=== PATIENT | male | born 1960 | race Caucasian/White ===

== ENCOUNTER 2016-11-26 05:24 | Inpatient (IN) | payer OTHER ==
--- NOTE | 2016-11-20 14:10 | CONS ---
DATE OF ADMISSION: 11/26/2016 DATE OF CONSULTATION: TYPE OF CONSULTATION: Preoperative Internal Medicine REASON FOR CONSULTATION: Consultation requested by Dr. Jon Ornelas for medical evaluation and clearance of a 56-year-old gentleman about to undergo surgery on his back. Thank you, Dr. Ornelas, for allowing us to participate in the care of this patient. HISTORY OF PRESENT ILLNESS: Tucker Vaughn is a 56-year-old gentleman with progressively worsening problems with his back. He is currently being admitted for correction of the above problem. In terms of his prior medical history, he has been generally fairly healthy. He is currently finding it more and more difficult to work because of his back pain and at this point is ready to do something about it. In terms of his prior surgical history, he has had surgery for a deviated septum, no other significant surgeries. He has had no medical hospitalizations, no big broken bones. MEDICATIONS: He is currently takin. Omeprazole 20 mg a day. 2. Sulindac 200 mg b.i.d. 3. Another anti-inflammatory, all of which he is stopping prior to his surgery. ALLERGIES: HE IS NOT ALLERGIC TO ANY MEDICATIONS. SOCIAL HISTORY: The patient is , has 2 children and 2 grandchildren, all in good health. He quit smoking about a year ago, did smoke for many years. Alcohol socially. Does drink coffee. 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 He has sleep apnea for which he uses a CPAP machine. FAMILY HISTORY: Father at age 53, had bladder cancer and heart. Mother is 79 in good health. One sister had cervical cancer, but is doing well. There is a family history of heart, cancer and thyroid issues. He knows of no diabetes, hypertension or stroke. REVIEW OF SYSTEMS: HEENT: Periodic migraine headaches. CARDIORESPIRATORY: Denies any chest pain or shortness of breath. GASTROINTESTINAL: Does have some hyperacidity symptoms, otherwise no melena or hematemesis. GENITOURINARY: No urgency, frequency. MUSCULOSKELETAL: Positive for back problems. NEUROPSYCHIATRIC: Unremarkable. GENERAL HEALTH: As above. PHYSICAL EXAMINATION: VITAL SIGNS: The patient's blood pressure was 124/80, pulse was 60 and regular , respirations were 18, temperature 98.9. Height 5 feet 10 inches, weight 258 pounds. GENERAL: The patient was noted to be a well-developed, well-nourished male, alert and cooperative, in no apparent acute distress. Oriented to time, place, and person. HEENT: Head was atraumatic. Eyes: Pupils were equal, reactive to light and accommodation. Fundi were benign. Tympanic membranes were unremarkable. Nose was negative. Mouth was unremarkable. Fair oral hygiene was present. NECK: Supple without any rigidity. Trachea was midline. Thyroid was unremarkable. Neck veins were flat. Carotid pulses were equal. No bruits were heard. BACK: Unremarkable say for lower back tenderness and difficulty in movement. CHEST: Symmetrical. BREASTS AND AXILLARY: Exam did not reveal any masses. LUNGS: Clear to percussion and auscultation. HEART: PMI was at the fifth intercostal space at the midclavicular line. Regular sinus rhythm was noted. No significant murmurs, rubs, or gallops being elicited. ABDOMEN: Soft, good bowel sounds were noted. No significant organomegaly, masses, or tenderness. GENITALIA: Normal male external genitalia. RECTAL AND PROSTATIC: Exam per PCP. EXTREMITIES: Did not reveal any clubbing, edema or cyanosis. Peripheral pulses were physiologic. SKIN: Moist and warm without any significant eruptions. However, there were multiple moles, and there was a mole right side of his back that appeared to have at least recently bled. No gross lymphadenopathy was noted. NEUROLOGIC: Grossly intact. IMPRESSION: 1. Lumbar disk disease. 2. Gastroesophageal reflux disease. 3. Urinary retention, probably secondary to prostatic enlargement. 4. Stable health. DISCUSSION: Review of laboratory and other data revealed the following: The patient's chemistry panel including electrolytes, glucose, BUN, creatinine, liver function tests, calcium, phosphorus, magnesium were normal. The patient' s iron was somewhat low at 45. CBC was basically normal. However, his white count was mildly elevated at 11, as was his hemoglobin and hematocrit, possibly compatible with early polycythemia. Sed rate was normal. UA, PT, PTT were normal as well. The patient's EKG was normal and his chest x-ray did not reveal any acute changes or abnormalities. Dr. Ornelas, I see no contraindications in this patient undergoing current proposed surgery under desired form of anesthesia. He is a suitable candidate at this particular point in time. I will be more than happy to follow him with you during his stay at [facility]. Thank you again, Dr. Ornelas, for allowing us to participate in the care of this patient. Dictated By: MAURI WORKMAN/TALAT Conf#: [id number] DID#: [id number] MTDD
[~2016-11-26] VITALS: Ht 177.8 cm; Wt 115.3 kg
[2016-11-26] VITALS (20 sets, daily range): BP systolic 103–140; BP diastolic 55–88; PULSE 67–78; RESP 7–20; Ht 177.8 cm; Wt 115.3 kg
[2016-11-26] MEDS ORDERED: CEFAZOLIN 2 GM/50 ML (PMX) 50 ML IVPB SCH (06:00)
[2016-11-26] MEDS ORDERED: LACTATED RINGER'S 1,000 ML IV* SCH (06:00)
[2016-11-26] MEDS ORDERED: GELATIN SIZE 100 SPONGE ONE (06:51)
[2016-11-26] MEDS ORDERED: POLYMYXIN/BACITRACIN 1L IRRIG ONE (06:51)
[2016-11-26] MEDS ORDERED: BUPIVACAINE 0.25% (MPF) 10 ML 10 ML VIAL ONE (06:51)
[2016-11-26] MEDS ORDERED: THROMBIN 5000 UNIT VIAL ONE (06:51)
[2016-11-26] MEDS ORDERED: METOCLOPRAMIDE 10 MG INJ ONE (06:52)
[2016-11-26] MEDS ORDERED: SUCCINYLCHOLINE CHLORIDE 100 MG/5 ML SYG IV ONE (06:52)
[2016-11-26] MEDS ORDERED: ROCURONIUM 50 MG INJ ONE ×2 (06:52→09:18)
[2016-11-26] MEDS ORDERED: PROPOFOL 20 ML ONE ×3 (06:52→09:10)
[2016-11-26] MEDS ORDERED: MIDAZOLAM 1 MG/ML 2 ML INJ ONE (06:52)
--- NOTE | 2016-11-26 06:52 | HPN ---
Date/Time of Note Date/Time of Note DATE: 11/26/16 TIME: 06:52 Interval H&P Admission Note Pt. seen H&P reviewed: No system changes ROMERO MELÉNDEZ MD November 26, 2016 06:52
[2016-11-26] MEDS ORDERED: HYDROmorphONE 2 MG/ML SYG ONE (06:56)
[2016-11-26] MEDS ORDERED: SULF1POW MC (07:22)
[2016-11-26] MEDS ORDERED: SULI150T39 PO (07:22)
[2016-11-26] MEDS ORDERED: PROPOFOL 100 ML ONE (07:24)
[2016-11-26] MEDS ORDERED: OMEP5POW MC (07:26)
[2016-11-26] MEDS ORDERED: ONDANSETRON 4 MG INJ ONE (07:31)
[2016-11-26] MEDS ORDERED: CEFAZOLIN 1 GM INJ ONE (07:50)
[2016-11-26] MEDS ORDERED: ONDANSETRON 4 MG INJ IV PRN ×2 (09:00→10:30)
[2016-11-26] MEDS ORDERED: OXYCODONE/ACETAMINOPHEN (5/325) TAB PO PRN ×2 (09:00)
[2016-11-26] MEDS ORDERED: HYDROmorphONE (0.2 MG/ML) 10ML SYG IV PRN ×3 (09:00)
[2016-11-26] MEDS ORDERED: MEPERIDINE 25 MG INJ IV PRN (09:00)
[2016-11-26] MEDS ORDERED: METOCLOPRAMIDE 10 MG INJ IV PRN (09:00)
[2016-11-26] MEDS ORDERED: DIPHENHYDRAMINE 50 MG INJ IV PRN (09:00)
[2016-11-26] MEDS ORDERED: CEPASTAT LOZENGE MT PRN (10:30)
[2016-11-26] MEDS ORDERED: ZOLPIDEM 5 MG TAB PO PRN (10:30)
[2016-11-26] MEDS ORDERED: HYDROmorphONE 0.2 MG/ML PCA IV SCH (10:30)
[2016-11-26] MEDS ORDERED: DIPHENHYDRAMINE 50 MG CAP PO PRN (10:30)
[2016-11-26] MEDS ORDERED: ACETAMINOPHEN 325 MG TAB PO PRN (10:30)
[2016-11-26] MEDS ORDERED: NACL 0.9% 3 ML SYG IV SCH (10:30)
[2016-11-26] MEDS ORDERED: BETHANECHOL 25 MG TAB PO PRN (10:30)
[2016-11-26] MEDS ORDERED: NALOXONE (0.4 MG/ML) INJ IV PRN (10:30)
[2016-11-26] MEDS ORDERED: DIAZEPAM 5 MG/ML SYG IM PRN (10:30)
[2016-11-26] MEDS ORDERED: PROCHLORPERAZINE 10 MG TAB PO PRN (10:30)
[2016-11-26] MEDS ORDERED: TRIMETHOBENZAMIDE 100 MG/ML VIAL IM PRN (10:30)
--- NOTE | 2016-11-26 10:30 | OPR ---
Date/Time of Note Date/Time of Note DATE: 11/26/16 TIME: 10:27 Operative Report Preoperative Diagnosis Lumbar spinal stenosis at L3,L4, and L5 (lateral recess) Herniated disc L4-5 on the right Herniated disc L5-S1 on the left Postoperative Diagnosis same Operation Performed Central decompressive laminectomy at L3-L4 and L5 Microdiscectomy L4-5 on the right Microdiscectomy L5-S1 on the left Surgeon: ROMERO MELÉNDEZ MD insurance sales assistant: RADHA BROWN Anesthesia: general Anesthesiologist: ALFRED FOSTER MD Estimated Blood Loss: 250 - 300 ml's Specimens Spinous processes of L3-L4 and L5 Herniated disc material L4-5 on the right and L5-S1 on the left Tubes/Drains 2 medium Hemovac drains employed Complications: None Pt Condition Post Procedure: stable Disposition: PACU Operative\Procedure Findings At surgery, lumbar spinal stenosis at L3 and L4 was confirmed there was bilateral foraminal stenosis at L5-S1. There was a small right paracentral herniation at L4-5 There was a small left calcified paracentral herniation at L5-S1 ROMERO MELÉNDEZ MD November 26, 2016 10:30
--- NOTE | 2016-11-26 10:48 | RADRPT ---
PROCEDURE: Intraoperative XR. CLINICAL INDICATION: Intraoperative radiograph during lumbar decompression. TECHNIQUE: Spot intraoperative lateral lumbar x-ray image was provided. The images were reviewed on a high-resolution PACS workstation. COMPARISON: None available FINDINGS: Spot intraoperative lateral lumbar view were provided during there lumbar decompression. The images demonstrate metallic probes at the level of L4 and L5. There is moderate spondylosis at L5-S1. IMPRESSION: 1. Spot intraoperative lateral lumbar view during lumbar decompression were provided. 2. Please see operative report of the same day for further information. RPTAT: DD .Robert Dukes MD, Date Time Electronically viewed and signed by .Robert Dukes MD, on 11/26/2016 10:47 .S/
--- NOTE | 2016-11-26 10:48 | RADRPT ---
PROCEDURE: Intraoperative XR. CLINICAL INDICATION: Intraoperative radiograph during lumbar decompression. TECHNIQUE: Spot intraoperative lateral lumbar x-ray image was provided. The images were reviewed on a high-resolution PACS workstation. COMPARISON: None available FINDINGS: Spot intraoperative lateral lumbar view were provided during lumbar decompression. The images demon strate postoperative changes from laminectomy at L4 and L5 with postoperative changes in the posteri or soft tissues. IMPRESSION: 1. Spot intraoperative lateral lumbar view during lumbar decompression were provided. 2. Please see operative report of the same day for further information. RPTAT: DD .Robert Dukes MD, Date Time Electronically viewed and signed by .Robert Dukes MD, on 11/26/2016 10:48 .S/
--- NOTE | 2016-11-26 10:49 | RADRPT ---
PROCEDURE: Intraoperative XR. CLINICAL INDICATION: Intraoperative radiograph during lumbar decompression. TECHNIQUE: Spot intraoperative lateral lumbar x-ray image was provided. The images were reviewed on a high-resolution PACS workstation. COMPARISON: None available FINDINGS: Spot intraoperative lateral lumbar view were provided during lumbar decompression. The images demon strate postoperative changes from laminectomies at L4 and L5. There is a metallic probe at the leve l of L5-S1. IMPRESSION: 1. Spot intraoperative lateral lumbar view during lumbar decompression were provided. 2. Please see operative report of the same day for further information. RPTAT: DD .Robert Dukes MD, Date Time Electronically viewed and signed by .Robert Dukes MD, on 11/26/2016 10:49 .S/
[2016-11-26] MEDS: CEFAZOLIN 1 GM/50 ML (PMX) 50 ML IVPB SCH ×2 (12:02→17:10)
[2016-11-26] MEDS: DEXTROSE 5%-0.45% NACL 1,000 ML IV SCH ×2 (12:02→22:28)
--- NOTE | 2016-11-26 12:15 | OPR ---
DATE OF OPERATION: 11/26/2016 PREOPERATIVE DIAGNOSES: 1. Lumbar spinal stenosis at L3, L4, and L5 (lateral recess/ foraminal): 2. Herniated disk, L4 to L5 on the right. 3. Herniated disk, L5 to S1 on the left (calcified). POSTOPERATIVE DIAGNOSES: 1. Lumbar spinal stenosis at L3, L4, and L5 (lateral recess/ foraminal): 2. Herniated disk, L4 to L5 on the right. 3. Herniated disk, L5 to S1 on the left (calcified). OPERATIONS PERFORMED: 1. Central decompressive laminectomy at L3. 2. Central decompressive laminectomy at L4. 3. Central decompressive laminectomy at L5. 4. Microdiskectomy, L4 to L5 on the right. 5. Microdiskectomy, L5 to S1 on the left. 6. Medial facetectomy and foraminotomy, L3 to L4, L4 to L5, L5 to S1 bilaterally. 7. Cosmetic wound closure (14 cm). 8. Lateral localized lumbar radiographs (3). 9. Intraoperative nerve monitoring (3 hours). SURGEON: Jon Ornelas MD MATERIAL HANDLING WAREHOUSE SUPERVISOR: SEAN English ANESTHESIA: General endotracheal. ANESTHESIOLOGIST: Dr. Washington ESTIMATED BLOOD LOSS: 350 mL, none replaced. DRAINS: Two medium Hemovac drains employed. COMPLICATIONS: None. PERTINENT HISTORY AND PHYSICAL: This is a 56-year-old male with persistent back and lower extremity complaints, left greater than right, which has been unrelieved by conservative management. He has undergone a number of diagnostic studies including an MRI of the lumbar spine which demonstrated naomie tral stenosis at L3 and L4 and lateral recess/foraminal stenosis at L5 to S1. There were disk herni ations noted at L4 to L5 on the right and L5 to S1 on the left. Treatment options were discussed wi th the patient, who elected to proceed with surgery. OPERATIVE FINDINGS AT SURGERY: The patient had significant central stenosis at L3 and to a lesser d egree at L4. There was some lateral recess and foraminal narrowing at L5 the patient S1 bilaterally . There was a small right paracentral herniation at L4 to L5 and a small calcified left paracentral herniation at L5 to S1. The baseline intraoperative nerve monitoring revealed a decrease in the L4 potential on the left at 40%, the L4 potential on the right at 50%, the L5 potential on the left at 50%, the L5 potential on the right at 60%, the S1 potential on the left at 50%, the S1 potential on the right at 40%. These all returned to normal at the completion of surgery. OPERATIVE PROCEDURE: With the patient in supine position after satisfactory induction of general en dotracheal anesthesia by Dr. Washington, the patient was turned to the prone kneeling position on the Anderson frame. All pressure points were carefully padded. The back was prepped and draped in usu al sterile fashion. Athrombic pumps were applied to the legs below the knees to prevent venous isabel is during and after procedure. An indwelling Cohen catheter was also placed preoperatively to facil itate bladder drainage during the procedure. The patient has a LATEX ALLERGY and all LATEX products were removed from the room. No LATEX containing products were used during the surgery. Two spinal needles were placed next to what was felt to be the L4 and L5 spinous processes, lateral roentgenog carlos was taken which confirmed anatomic localization. A 14 cm incision then carried midline from L3 to the sacrum through skin and subcutaneous tissue to the deep fascia after the skin was infiltrated with 0.25% Marcaine without epinephrine for postoperative analgesia. Superficial retractors were p laced and hemostasis secured with electrocautery. Throughout the procedure, copious amounts of anti bacterial irrigating solution were used to periodically irrigate the wound. The fascia was incised in midline with a hot knife and a bilateral subperiosteal dissection carried out from L3 to the sacr um. Deep retractors were placed and deep hemostasis secured with electrocautery. A second intraope rative radiograph was taken with Sweta clamps placed in what was felt to be the spinous process of L3, L4, and L5 and this was confirmed with second x-ray. A central decompressive laminectomy at L5, L4 and L3 was then carried out using a J Luis right-angle bone rongeur, Leksell rongeur, Kerrison punches and curettes. Ligamentum flavum was incised with sharp dissection. The operating microscop e was then moved into place. A medial facetectomy and foraminotomy was accomplished at L3 to L4, L4 to L5, and L5 to S1 bilaterally using small hand osteotome, mallet, Kerrison punches and curettes. The attention was then turned to the L4 to L5 disk on the right where the L5 root was mobilized medi ally and protected with D'Errico nerve retractors and microdissection technique. This revealed a he rniation of the L4 to L5 disk on the right. A 15 blade knife used to cut a rectangular window in th e annulus and posterior longitudinal ligament and multiple degenerative disk fragments were harveste d with pituitary rongeurs and sent to laboratory for pathologic study. Additional fragments were montero rvested using Stephanie curettes. A thorough search of the floor of the canal was made with an arthro scopic probe. No additional fragments were encountered. The epidural hemostasis was secured with b ipolar electrocautery on low setting. The anesthesiologist was asked to perform a Valsalva maneuver at 40 mmHg, no spinal fluid leakage was noted. Attention then turned to the L5 to S1 level on the left where the S1 root was mobilized medially and protected with D'Errico nerve retractor using microdissection technique. The L5 to S1 disk was not readily identified, as it appeared to have been calcified over, and a 20-gauge spinal needle was pl aced next to what was felt to be the disk space and lateral roentgenogram was taken which confirmed an appropriate localization of the disk. A 15 blade knife was then used to cut a rectangular window in the annulus and posterior longitudinal ligament and multiple calcified disk fragments were remov ed and sent to laboratory for pathologic study. The epidural hemostasis was secured with bipolar el ectrocautery on a low setting. The anesthesiologist was asked to perform a final Valsalva maneuver at 40 mmHg and no spinal fluid leak was noted. The wound was then closed in layers over 2 medium He movac drains, one below the fascia and one above the fascia, using #1 Stratafix sutures in deep par alumbar musculature and deep fascia of the back, 2-0 Stratafix sutures in subcu tissue, and a 4-0 Vi cryl subcuticular cosmetic closing suture on the skin. Dermabond and sterile compressive dressings were applied. Patient having tolerated procedure well, was then turned to supine position onto his bed and extubated by Dr. Washington. He was transported to recovery room in satisfactory condition. At the conclusion of the procedure, sponge, instrument, and needle counts were all correct. NEED FOR FEDERAL MEDIATION COMMISSIONER: During this spinal surgical procedure, my shipping assistant was used to retrac t and protect the spinal nerves and dural sac. My shipping assistant also employed the suction catheters to e vacuate blood from the surgical field to improve visualization of the neural structures. The assista nt was medically necessary to facilitate the completion of the surgery in a safe and expeditious man ner. State of [place] regulations, as well as hospital bylaws, preclude the use of non-licensed [facility] care personnel such as operating room technicians, to perform these functions. Throughout the procedure, neural monitoring was carried out by [employer] including EMG, SSEP and MEP monitoring of the L3, L4, L5 and S1 nerve roots bilaterally along with s alise cord potentials. These were interpreted by neurologists employed by [employer]. Dictated By: JON ORNELAS MD TM/NTS Conf#: [id number] DID#: [id number] CC: MATI EAST MD; JON ORNELAS MD;*[facility]*
[2016-11-26] MEDS ORDERED: METOPROLOL 5 MG INJ ONE (13:55)
[2016-11-26] MEDS: METOCLOPRAMIDE 10 MG INJ IV PRN (18:44)
--- NOTE | 2016-11-26 19:19 | CONS ---
Date/Time of Note Date/Time of Note DATE: 11/26/16 TIME: 19:11 Assessment/Plan Assessment/Plan Problems: (1) Nausea after anesthesia Status: Acute Comment: Antiemetic prn. (2) Status post laminectomy Status: Acute Comment: Clinically stable. Management per Dr. Meléndez and team. (3) GERD (gastroesophageal reflux disease) Status: Chronic (4) Sleep apnea in adult Status: Chronic Comment: Patient will continue to use CPAP machine. (5) At risk for retention of urine Comment: History of urinary retention likely secondary to BPH. Now at increased risk after anesthesia and surgery. Will monitor closely. Consultation Date/Type/Reason Admit Date/Time November 26, 2016 at 05:24 Initial Consult Date Type of Consultation: Internal Medicine Reason for Consultation Postoperative management of non surgical issues Referring Provider: ROMERO MELÉNDEZ MD 24 HR Interval Summary Free Text/Dictation Patient complain of extreme nausea. Denies pain at this time. Exam/Review of Systems Vital Signs Vitals Vital Signs Date Time Temp Pulse Resp B/P Pulse Ox O2 Delivery O2 Flow Rate FiO2 11/26/16 17:00 18 11/26/16 14:50 97.9 71 110/55 98 Nasal Cannula 2.0 Exam Lying in bed.No acute distress. Constitutional: alert, obese, oriented Head: normocephalic Eyes: EOMI, PERRL, nl conjunctiva Neck: supple Respiratory: clear to auscultation Cardiovascular: regular rate and rhythm Gastrointestinal: soft Musculoskeletal: nl extremities to inspection Extremities: normal pulses Results Labs and vitals reviewed Medications Medications Current Medications Cefazolin Sodium/ Dextrose 50 ml @ 100 mls/hr OC IVPB ; Start 11/26/16 at 06:00 ; Stop 11/26/16 at 23:00 Lactated Ringer's 1,000 ml @ 0 mls/hr Q0M IV* ; Start 11/26/16 at 06:00; Stop 11/26/16 at 23:00 Dextrose/Sodium Chloride (D5-1/2ns) 1,000 ml @ 100 mls/hr Q10H IV Last administered on 11/26/16t 12:02; Admin Dose 100 MLS/HR; Start 11/26/16 at 10:24 Acetaminophen/ Hydrocodone Bitart ([place] (5/325)) 1 tab Q4H PRN PO PAIN LEVEL 1 -5; Start 11/26/16 at 10:30 Acetaminophen/ Hydrocodone Bitart 2 tab 2 tab Q4H PRN PO PAIN LEVEL 6-10; Start 11/26/16 at 10:30 Cefazolin Sodium (Ancef 1 Gm/50 ml (Pmx)) 50 ml @ 100 mls/hr Q6 IVPB Last administered on 11/26/16 17:10; Admin Dose 100 MLS/HR; Start 11/26/16 at 12:00 ; Stop 11/27/16 at 06:29 Zolpidem Tartrate (Ambien) 5 mg HS PRN PO INSOMNIA; Start 11/26/16 at 10:30 Prochlorperazine (Compazine) 10 mg Q4H PRN PO NAUSEA AND/OR VOMITING Last administered on 11/26/16 17:09; Admin Dose 10 MG; Start 11/26/16 at 10:30 Trimethobenzamide HCl (Tigan) 200 mg Q4H PRN IM NAUSEA AND/OR VOMITING; Start 11/26/16 at 10:30 Ondansetron HCl (Zofran Inj) 4 mg Q6H PRN IV NAUSEA AND/OR VOMITING Last administered on 11/26/16 13:47; Admin Dose 4 MG; Start 11/26/16 at 10:30 Al Hydrox/Mg Hydrox/Simethicone (Mag-Al Plus) 15 ml Q4H PRN PO CONSTIPATION; Start 11/26/16 at 10:30 Docusate Sodium (Colace) 100 mg BID PO ; Start 11/27/16 at 09:00 Acetaminophen (Tylenol Tab) 650 mg Q4H PRN PO TEMP GREATER THAN 101F OR GREENE; Start 11/26/16 at 10:30 Ascorbic Acid (Vitamin C) 1,000 mg BID PO ; Start 11/27/16 at 09:00 Ferrous Sulfate (Ferrous Sulfate (Ec)) 325 mg TID PO ; Start 11/27/16 at 09:00 Ranitidine HCl (Zantac) 150 mg BID PO ; Start 11/26/16 at 21:00 Diazepam (Valium) 5 mg Q4H PRN PO MUSCLE SPASMS; Start 11/26/16 at 10:30 Diazepam (Valium) 5 mg Q4H PRN IM MUSCLE SPASMS; Start 11/26/16 at 10:30 Phenol (Cepastat Lozenge) 1 lozenge PRN PRN MT SORE THROAT; Start 11/26/16 at 10:30 Bethanechol Chloride (Urecholine) 25 mg PRN PRN PO UNABLE TO VOID; Start at 10:30 Diphenhydramine HCl (Benadryl) 50 mg Q6H PRN PO PRURITUS; Start 11/26/16 at 10: 30 Hydromorphone HCl (Dilaudid CLERK SPECIALIST) Q4PCA IV Last administered on 11/26/16 10:51 ; Admin Dose 6 MG; Start 11/26/16 at 10:30 Naloxone HCl (Narcan) 0.2 mg Q2M PRN IV RR 8 BREATHS/MIN OR LESS; Start at 10:30 Metoclopramide HCl (Reglan) 10 mg Q4H PRN IV NAUSEA Last administered on 18:44; Admin Dose 10 MG; Start 11/26/16 at 19:00 MARIELA AVALOS MD November 26, 2016 19:19
[2016-11-26] MEDS: DIAZEPAM 5 MG TAB PO PRN (20:18)
[2016-11-26] MEDS: RANITIDINE 150 MG TAB PO SCH (20:18)
[2016-11-27] MEDS: CEFAZOLIN 1 GM/50 ML (PMX) 50 ML IVPB SCH ×2 (00:08→05:51)
[2016-11-27] MEDS: DIAZEPAM 5 MG TAB PO PRN (04:14)
[2016-11-27 05:12] LABS: HEMATOCRIT 35.3 % (42.0-52.0)
[2016-11-27 05:38] LABS: CREATININE 1.05 mg/dl (0.61-1.24); POTASSIUM 3.9 mmol/L (3.5-5.1)
[2016-11-27] MEDS: METOCLOPRAMIDE 10 MG INJ IV PRN (05:51)
[2016-11-27] MEDS: DEXTROSE 5%-0.45% NACL 1,000 ML IV SCH ×2 (06:24→10:17)
--- NOTE | 2016-11-27 07:00 | PN ---
Date/Time of Note Date/Time of Note DATE: 11/27/16 TIME: 06:59 Assessment/Plan Lines/Catheters IV Catheter Type (from Nrs): Saline Lock Cohen in Place (from Nrsg): Yes Subjective 24 Hr Interval Summary The patient is postop day #1 following a multilevel decompressive laminectomy from L3 to the sacrum. He is resting comfortably in bed. Neurovascular structures are intact distally. His morning lab work is unremarkable. His Hemovac is 110 cc this morning and will be left in place. He will be mobilized with physical therapy for walker ambulation training as tolerated. Exam/Review of Systems Vital Signs Vitals Vital Signs Date Time Temp Pulse Resp B/P Pulse Ox O2 Delivery O2 Flow Rate FiO2 11/27/16 05:49 18 11/26/16 20:30 98.9 80 113/61 99 11/26/16 14:50 Nasal Cannula 2.0 Intake and Output 11/26/16 11/26/16 11/27/16 15:00 23:00 07:00 Intake Total 2650 ml 1570 ml 410 ml Output Total 500 ml 625 ml 2660 ml Balance 2150 ml 945 ml -2250 ml Results Result Diagram: 11/27/16 0410 11/27/16 0410 ROMERO MELÉNDEZ MD Nov 27, 2016 07:00
[2016-11-27 08:33] VITALS: BP 135/65; RESP 18
[2016-11-27] MEDS: BETHANECHOL 25 MG TAB PO PRN ×2 (08:51→20:29)
[2016-11-27] MEDS: DOCUSATE SODIUM 100 MG CAP PO SCH ×2 (08:51→20:28)
[2016-11-27] MEDS: FERROUS SULFATE (EC) 325 MG TAB PO SCH ×3 (08:52→20:27)
[2016-11-27] MEDS: ASCORBIC ACID 500 MG TAB PO SCH ×2 (08:53→20:28)
[2016-11-27] MEDS: RANITIDINE 150 MG TAB PO SCH ×2 (08:53→20:29)
[2016-11-27] MEDS: HYDROCODONE/APAP (5/325) TAB PO PRN ×3 (10:16→20:31)
[2016-11-27 15:20] LABS: ADD UMIC YES; URINE BILIRUBIN (Dip) NEGATIVE (NEGATIVE); URINE BLOOD (Dip) NEGATIVE (NEGATIVE); URINE COLOR LT. YELLOW (YELLOW); URINE GLUCOSE (Dip) NEGATIVE (NEGATIVE); URINE KETONES (Dip) NEGATIVE (NEGATIVE); URINE LEUKOCYTE ESTERASE (Dip) TRACE (NEGATIVE); URINE NITRITE (Dip) NEGATIVE (NEGATIVE); URINE TOTAL PROTEIN (Dip) NEGATIVE (NEGATIVE); URINE UROBILINOGEN (Dip) 0.2 E.U./dL (0.1-1.0)
[2016-11-27 15:46] LABS: SQUAMOUS EPITHELIAL CELL,UR FEW; URINE RBCS NONE SEEN /HPF (0)
--- NOTE | 2016-11-27 18:46 | CONS ---
Date/Time of Note Date/Time of Note DATE: 11/27/16 TIME: 18:40 Assessment/Plan Assessment/Plan Problems: (1) Sleep apnea in adult Status: Chronic Comment: Continue CPAP prn sleep. (2) Nausea after anesthesia Status: Resolved (3) GERD (gastroesophageal reflux disease) Status: Chronic Comment: no acute issues (4) At risk for retention of urine Status: Chronic Comment: Patient with decent urine output. Continue to monitor for urinary retention. Can do straight cath if retaining greater than 300 cc. (5) Status post laminectomy Status: Acute Comment: Management per Ceci Johnson and team. Additional Assessment/Plan Clinically stable for discharge from view point Consultation Date/Type/Reason Admit Date/Time November 26, 2016 at 05:24 Type of Consultation: Internal Medicine Reason for Consultation medical management of non surgical issues. Referring Provider: ROMERO MELÉNDEZ MD 24 HR Interval Summary Free Text/Dictation Nausea resolved. Exam/Review of Systems Vital Signs Vitals Vital Signs Date Time Temp Pulse Resp B/P Pulse Ox O2 Delivery O2 Flow Rate FiO2 11/27/16 08:33 98.2 89 18 135/65 95 11/26/16 14:50 Nasal Cannula 2.0 Intake and Output 11/26/16 11/26/16 11/27/16 14:59 22:59 06:59 Intake Total 2650 ml 1570 ml 1110 ml Output Total 500 ml 625 ml 2660 ml Balance 2150 ml 945 ml -1550 ml Exam Resting comfortably Constitutional: alert, obese, oriented Neck: supple Respiratory: clear to auscultation, normal air movement Cardiovascular: regular rate and rhythm Gastrointestinal: soft Musculoskeletal: nl extremities to inspection Extremities: normal pulses Results Labs and vitals reviewed Result Diagram: 11/27/160 11/27/16 0410 Results 24 hrs Laboratory Tests Test 11/27/16 04:10 11/27/16 13:40 Hemoglobin 12.0 L Hematocrit 35.3 L Sodium Level 138 Potassium Level 3.9 Chloride Level 108 Carbon Dioxide Level 28 Anion Gap 6 L Blood Urea Nitrogen 10 Creatinine 1.05 Glucose Level 104 Calcium Level 8.0 L Urine Color LT. YELLOW Urine Clarity CLEAR Urine pH 7.0 Urine Specific [place] <=1.005 L Urine Ketones NEGATIVE Urine Nitrite NEGATIVE Urine Bilirubin NEGATIVE Urine Urobilinogen 0.2 E.U./dL Urine Leukocyte Esterase TRACE H Urine Microscopic RBC NONE SEEN Urine Microscopic WBC 2-5 Urine Squamous Epithelial Cells FEW Urine Hemoglobin NEGATIVE Urine Glucose NEGATIVE Urine Total Protein NEGATIVE Medications Medications Current Medications Dextrose/Sodium Chloride (D5-1/2ns) 1,000 ml @ 100 mls/hr Q10H IV Last administered on 11/27/16 10:17; Admin Dose 100 MLS/HR; Start 11/26/16 at 10:24 Acetaminophen/ Hydrocodone Bitart ([place] (5/325)) 1 tab Q4H PRN PO PAIN LEVEL 1 -5; Start 11/26/16 at 10:30 Acetaminophen/ Hydrocodone Bitart ([place] (5/325)) 2 tab Q4H PRN PO PAIN LEVEL 6 -10 Last administered on 11/27/16 14:34; Admin Dose 2 TAB; Start 11/26/16 at 10: 30 Zolpidem Tartrate (Ambien) 5 mg HS PRN PO INSOMNIA; Start 11/26/16 at 10:30 Prochlorperazine (Compazine) 10 mg Q4H PRN PO NAUSEA AND/OR VOMITING Last administered on 11/26/16 17:09; Admin Dose 10 MG; Start 11/26/16 at 10:30 Trimethobenzamide HCl (Tigan) 200 mg Q4H PRN IM NAUSEA AND/OR VOMITING; Start 11/26/16 at 10:30 Ondansetron HCl (Zofran Inj) 4 mg Q6H PRN IV NAUSEA AND/OR VOMITING Last administered on 11/26/16 13:47; Admin Dose 4 MG; Start 11/26/16 at 10:30 Al Hydrox/Mg Hydrox/Simethicone (Mag-Al Plus) 15 ml Q4H PRN PO CONSTIPATION; Start 11/26/16 at 10:30 Docusate Sodium (Colace) 100 mg BID PO Last administered on 11/27/16 08:51; Admin Dose 100 MG; Start 11/27/16 at 09:00 Acetaminophen (Tylenol Tab) 650 mg Q4H PRN PO TEMP GREATER THAN 101F OR GREENE Last administered on 11/27/16 04:06; Admin Dose 650 MG; Start 11/26/16 at 10:30 Ascorbic Acid (Vitamin C) 1,000 mg BID PO Last administered on 11/27/16 08:53; Admin Dose 1,000 MG; Start 11/27/16 at 09:00 Ferrous Sulfate (Ferrous Sulfate (Ec)) 325 mg TID PO Last administered on 14:30; Admin Dose 325 MG; Start 11/27/16 at 09:00 Ranitidine HCl (Zantac) 150 mg BID PO Last administered on 11/27/16 08:53; Admin Dose 150 MG; Start 11/26/16 at 21:00 Diazepam (Valium) 5 mg Q4H PRN PO MUSCLE SPASMS Last administered on 11/27/16 04:14; Admin Dose 5 MG; Start 11/26/16 at 10:30 Diazepam (Valium) 5 mg Q4H PRN IM MUSCLE SPASMS; Start 11/26/16 at 10:30 Phenol (Cepastat Lozenge) 1 lozenge PRN PRN MT SORE THROAT; Start 11/26/16 at 10:30 Diphenhydramine HCl (Benadryl) 50 mg Q6H PRN PO PRURITUS; Start 11/26/16 at 10: 30 Hydromorphone HCl (Dilaudid UNDERWRITING ASSISTANT) Q4PCA IV Last administered on 11/26/16 10:51 ; Admin Dose 6 MG; Start 11/26/16 at 10:30 Naloxone HCl (Narcan) 0.2 mg Q2M PRN IV RR 8 BREATHS/MIN OR LESS; Start at 10:30 Metoclopramide HCl (Reglan) 10 mg Q4H PRN IV NAUSEA Last administered on 05:51; Admin Dose 10 MG; Start 11/26/16 at 19:00 Bethanechol Chloride (Urecholine) 25 mg PRN PRN PO UNABLE TO VOID Last administered on 11/27/16 08:51; Admin Dose 25 MG; Start 11/27/16 at 08:00 MARIELA AVALOS MD Nov 27, 2016 18:46
[2016-11-27 21:37] VITALS: BP 117/60; RESP 20
[2016-11-28] MEDS: DEXTROSE 5%-0.45% NACL 1,000 ML IV SCH ×3 (01:58→22:24)
[2016-11-28] MEDS: DIAZEPAM 5 MG TAB PO PRN (03:26)
[2016-11-28] MEDS: HYDROCODONE/APAP (5/325) TAB PO PRN ×4 (03:26→20:21)
--- NOTE | 2016-11-28 07:06 | PN ---
Date/Time of Note Date/Time of Note DATE: 11/28/16 TIME: 07:04 Assessment/Plan Lines/Catheters IV Catheter Type (from Nrs): Saline Lock Cohen in Place (from Nrsg): Yes Subjective 24 Hr Interval Summary The patient is postop day #2 following a multilevel decompressive laminectomy. He is afebrile. Neurovascular structures are intact distally. He had urinary retention last night, and a Cohen catheter was reinserted into his bladder. His Hemovac output this morning is 70 cc. I will remove his Cohen catheter at noon, and monitor his Hemovac output. He has not yet been cleared for discharge by physical therapy. Exam/Review of Systems Vital Signs Vitals Vital Signs Date Time Temp Pulse Resp B/P Pulse Ox O2 Delivery O2 Flow Rate FiO2 11/27/16 21:37 99.1 82 20 117/60 95 11/26/16 14:50 Nasal Cannula 2.0 Intake and Output 11/27/16 11/27/16 11/28/16 15:00 23:00 07:00 Intake Total 450 ml 480 ml 1350 ml Output Total 40 ml 1140 ml 1970 ml Balance 410 ml -660 ml -620 ml Results Result Diagram: 11/27/16 0410 11/27/16 0410 ROMERO MELÉNDEZ MD Nov 28, 2016 07:06
[2016-11-28 08:25] VITALS: BP 119/54; RESP 18
[2016-11-28] MEDS: DOCUSATE SODIUM 100 MG CAP PO SCH ×2 (08:59→20:15)
[2016-11-28] MEDS: FERROUS SULFATE (EC) 325 MG TAB PO SCH ×3 (08:59→20:16)
[2016-11-28] MEDS: RANITIDINE 150 MG TAB PO SCH ×2 (09:00→20:15)
[2016-11-28] MEDS: ASCORBIC ACID 500 MG TAB PO SCH ×2 (09:00→20:15)
--- NOTE | 2016-11-28 18:02 | CONS ---
DATE OF ADMISSION: 11/26/2016 DATE OF CONSULTATION: 11/28/2016 REQUESTING PHYSICIAN: Dr. Ornelas. Dear Dr. Ornelas: Thank you for asking me to see this patient in urological consultation. This is a 56-year-old male who underwent multilevel decompressive surgery on his back. He had a postoperative Cohen catheter a nd when the catheter was removed, the patient initially was able to void a couple of times but sheila connelly last night he had urinary retention and required to have the Cohen catheter back in again; therefo re, a urological consultation was requested. Upon talking to the patient and to his at bedside , patient stated that he has been having problem with his urination even before his surgery in that he has a lot of hesitancy, it takes him a long time before he starts urinating, and his stream is so metimes slow, and he has recently been evaluated by the medical doctor. He was told that he does no t empty his bladder well. He, however, has not been taking any medication for his prostate. He has usually nocturia 1 to 2 times, and during the day he voids every 3 to 4 hours. There is no dysuria , no hematuria. MEDICATIONS: At the present he is on: 1. Colace. 2. Ascorbic acid. 3. Ferrous sulfate. 4. Urecholine 25 mg p.r.n. 5. Zantac. 6. Metoclopramide. 7. Hyrum. 8. Zolpidem for sleep. 9. Compazine. 10. Trimethobenzamide. 11. Zyban. 12. Zofran. 13. Diazepam. 14. Tylenol p.r.n. 15. Benadryl p.r.n. 16. Naloxone p.r.n. 17. Dilaudid p.r.n. ALLERGIES: THE PATIENT IS ALLERGIC TO LATEX. PAST SURGICAL HISTORY: He did have surgery on his nose for a deviated septum. At home he was takin maricel omeprazole, sulindac 200 mg twice a day. SOCIAL HISTORY: He is . He has 2 children and 2 grandchildren. FAMILY HISTORY: His father of bladder cancer at age 53. His mother is alive at age 79, and jeferson is in good health. He has a sister who was cervical cancer. There is a family history of heart d isease, cancer, and thyroid disease. There is no history, however, of diabetes or hypertension or s troke. PHYSICAL EXAMINATION: GENERAL: Reveals a 56-year-old male. He weighs 115.3 kilograms. He is 70 inches tall. VITAL SIGNS: His temperature is 97.8, pulse is 78, respiration 18, blood pressure 119/54. ABDOMEN: Soft. There is no abdominal mass palpable. GENITALIA: External genitalia are normal. EXTREMITIES: Normal. The patient denies having any numbness or tingling in his extremities. He sa id the pain that was going down to his legs has now cleared, and he just has back pain because of th e surgery. RECTAL: I did not do a rectal examination because of his recent surgery. LABORATORY DATA: CBC shows a hemoglobin 12.0, hematocrit 35.3. BUN is 10, creatinine 1.05, sodium 138, potassium 3.9, chloride 108, CO2 28. The urinalysis was negative. Urine culture: No growth a fter 48 hours. IMPRESSION: Postoperative urinary retention. This most likely is related to him being in bed and p ain medications. He did, however, have a prior problem urinating with a lot of hesitancy and not em ptying his bladder. RECOMMENDATION: I will keep the Cohen catheter overnight and remove it at 6:00 in the morning then do a pelvic ultrasound, where the machine technician checks the pre-void bladder volume, post-void bladder volume, and also try to see if they can visualized the prostate. Then I will start him also on Flom ax and see if that would help with his urination. Hopefully he can urinate and have a residual that is less than 300 mL. Then we could let him go home without the Cohen catheter. Otherwise, if the plan is to send him home, then he will have to go home with the Cohen catheter until he is up and ar ound, taking less pain medication, then we will take the catheter out and see if he is able to urina te well. I will follow his urological problem with you. I do thank you for allowing me to help in his care. Dictated By: KATIE MORALES/TALAT Conf#: [id number] DID#: [id number]
[2016-11-28] MEDS: AL HYDROX/MG HYDROX/SIMETH 30 ML CUP PO PRN (18:56)
[2016-11-28] MEDS: TAMSULOSIN (SR) 0.4 MG CAP PO SCH (20:15)
[2016-11-28 21:14] VITALS: BP 126/64; RESP 20
[2016-11-29] MEDS: AL HYDROX/MG HYDROX/SIMETH 30 ML CUP PO PRN ×2 (04:25→12:39)
[2016-11-29] MEDS: BETHANECHOL 25 MG TAB PO PRN (06:09)
[2016-11-29] MEDS: HYDROCODONE/APAP (5/325) TAB PO PRN ×2 (06:12→11:43)
[2016-11-29 08:00] VITALS: BP 122/64; RESP 20
[2016-11-29] MEDS: DEXTROSE 5%-0.45% NACL 1,000 ML IV SCH (08:24)
[2016-11-29] MEDS: DOCUSATE SODIUM 100 MG CAP PO SCH (08:28)
[2016-11-29] MEDS: FERROUS SULFATE (EC) 325 MG TAB PO SCH ×2 (08:28→12:39)
[2016-11-29] MEDS: TAMSULOSIN (SR) 0.4 MG CAP PO SCH (08:30)
[2016-11-29] MEDS: ASCORBIC ACID 500 MG TAB PO SCH (08:30)
[2016-11-29] MEDS: RANITIDINE 150 MG TAB PO SCH (08:30)
--- NOTE | 2016-11-29 08:35 | PN ---
Date/Time of Note Date/Time of Note DATE: 11/29/16 TIME: 08:32 Assessment/Plan Lines/Catheters IV Catheter Type (from Nrsg): Saline Lock Cohen in Place (from Nrsg): Yes Subjective 24 Hr Interval Summary The patient is postop day #3 following multilevel decompressive laminectomy. He was seen by Dr. Neri for urologic consultation due to urinary retention. Dr. Neri recommended that he stay overnight and have the Cohen catheter remain in place. It has been removed this morning, and he is scheduled for an ultrasound of the pelvis. Neurovascular structures are intact distally. His wound is clean and dry. If he is discharged from a urologic perspective, I have given him strict discharge precautions and instructions. We will see him in the office 1-2 weeks postop. Exam/Review of Systems Vital Signs Vitals Vital Signs Date Time Temp Pulse Resp B/P Pulse Ox O2 Delivery O2 Flow Rate FiO2 11/29/16 08:00 98.5 78 20 122/64 97 11/26/16 14:50 Nasal Cannula 2.0 Intake and Output 11/28/16 11/28/16 11/29/16 15:00 23:00 07:00 Intake Total 1400 ml 1450 ml Output Total 880 ml 1500 ml Balance 520 ml -50 ml Results Result Diagram: 11/27/16 0410 11/27/16 0410 ROMERO MELÉNDEZ MD Nov 29, 2016 08:35
--- NOTE | 2016-11-29 13:41 | PDOCDIS ---
Discharge Instructions CONDITION Patient Condition: Good HOME CARE INSTRUCTIONS: Diet Instructions: RegularSpecial Diet: regular ACTIVITY: Bathing Restrictions: Per Dr. Ornelas FOLLOW UP/APPOINTMENTS Appointments Dr. Ornelas (orthopedist) Dr. Neri (urologist) SCHOOL/WORK RELEASE May return to School/Work with: Per MARIELA Payan MD Nov 29, 2016 13:41
--- NOTE | 2016-11-29 13:43 | PN ---
DATE: 11/29/2016 SUBJECTIVE: Postop urinary retention. The patient had an indwelling Cohen catheter that was remove d this morning and he has since voided twice. He is comfortable at the present. OBJECTIVE: VITAL SIGNS: His temperature is 98.5, blood pressure 122/64. The pulse is 78, respiration is 20. The patient voided twice. The first time he voided 540 mL and the PVR was 88 mL. The second time he voided 500 mL and PVR was 20 mL. The patient also did have a pelvic ultrasound and on that pelvic ultrasound at the time they did it, he was not able to urinate. It appears they could not visualize the prostate well. From a clinical standpoint, he is doing well. He was started on tamsulosin yes terday, 0.4 mg twice a day, so we shall continue that. From a urological standpoint, he could go ho me. I gave him a prescription for the tamsulosin 0.4 mg twice a day. I gave him for 1 month and 1 refill. He could follow up with my office in about a month to make sure that he is emptying his sunil dder well and that the prostate is not an issue, then will decide whether to stay on the Flomax or n ot. His urine culture also has been negative. Dictated By: KATIE MORALES/TALAT Conf#: [id number] DID#: [id number]
[2016-11-29] MEDS ORDERED: TAMS-14 PO (13:45)
--- NOTE | 2016-11-29 19:12 | RADRPT ---
PROCEDURE: US pelvis. CLINICAL INDICATION: Inability to urinate. Urinary retention. TECHNIQUE: Multiple sonographic images of the pelvis were obtained. The images were reviewed on a PACS workstation. COMPARISON: None Available. FINDINGS: The bladder is distended The prevoid volume equals 800 cc. The patient was unable to urinate. IMPRESSION: 1. Enlarged bladder with a prevoid volume of 800 cc. The patient was unable to void. Cohen cathete r insertion may be beneficial for clinical management. Urology consultation is recommended. RPTAT: HLBP .Maxwell Castro MD, MD Date Time Electronically viewed and signed by .Maxwell Castro MD, MD on 11/29/2016 19:12 .P/
--- NOTE | 2016-11-29 19:26 | DS ---
Date/Time of Note Date/Time of Note DATE: 11/29/16 TIME: 19:16 Discharge Summary Admission/Discharge Info Admit Date/Time November 26, 2016 at 05:24 Discharge Date/Time Nov 29, 2016 at 15:20 Final Diagnosis 1.Lumbar spinal stenosis at L3, L4, and L5 (lateral recess/ foraminal): 2. Herniated disk, L4 to L5 on the right. 3. Herniated disk, L5 to S1 on the left (calcified). Patient Condition: Stable Consults Dr. Neri (urology) Dr. Ornelas (orthopedics) Procedures Multilevel decompressive laminectomy Hx of Present Illness Tucker Vaughn is a 56-year-old gentleman with progressively worsening problems with his back, who failed medical management. He found it more and more difficult to work because of his back pain and at this point was ready to do something about it. Hospital Course Patient was admitted for the above noted procedure. Tolerated the procedure with minimal complications such as post operative nausea secondary to anesthesia /analgesia and urinary retention. POD #[address] Neri was consulted to evaluate patient for urinary retention as on post op day #3 patient was still unable to void without straight catheterization. He was started on Flomax with good response. Discharged home in stable condition. Home Meds Active Scripts Tamsulosin Hcl* (Flomax*) 0.4 Mg Cap.er.24h, 0.4 MG PO DAILY for 30 Days, #30 CAP Prov:MARIELA AVALOS MD 11/29/16 Reported Medications Omeprazole (Omeprazole) 5 Gm Powder, 20 GM MC DAILY 11/26/16 Discontinued Reported Medications Sulfasalazine (Sulfasalazine) 1 Gm Powder, 500 GM MC BID 11/26/16 Sulindac* (Sulindac*) 150 Mg Tablet, 20 MG PO DAILY, TAB 11/26/16 Follow-up Plan Physical Therapy. Primary Care Provider Not On Staff Doctor Time spent on discharge: > 30 minutes MARIELA AVALOS MD Nov 29, 2016 19:26
== END 2016-11-29 15:20 | disposition home or self-care (01) | DRG 520 ==
LOC: REC 05:24 → MS1 11:51
PROVIDERS: ADMIT Orthopaedic Surgery; ATTEND Orthopaedic Surgery
PROC: 0SB40ZZ Excision of Lumbosacral Disc, Open Approach (ICD-10-PCS; 2016-11-26)
PROC: 01NB0ZZ Release Lumbar Nerve, Open Approach (ICD-10-PCS; 2016-11-26)
PROC: 4A11X4G Monitoring of Peripheral Nervous Electrical Activity, Intraoperative, External Approach (ICD-10-PCS; 2016-11-26)
PROC: 0SB20ZZ Excision of Lumbar Vertebral Disc, Open Approach (ICD-10-PCS; principal; 2016-11-26 07:00)
DX: M51.26 Other intervertebral disc displacement, lumbar region (principal); E66.9 Obesity, unspecified; M51.27 Other intervertebral disc displacement, lumbosacral region; M48.06 Spinal stenosis, lumbar region; M51.36 Other intervertebral disc degeneration, lumbar region; K21.9 Gastro-esophageal reflux disease without esophagitis; G47.30 Sleep apnea, unspecified; R33.9 Retention of urine, unspecified; R11.0 Nausea; Z68.36 Body mass index [BMI] 36.0-36.9, adult
CPT/HCPCS: 72020; 76856; 80048; 81001; 85014; 85018; 86850; 86900; 86901; 86920; 87086; 97116; 97163; 97530; A4310; J0690; J1170; J2250; J2405; J2765; J7042; J7999